=== PATIENT | male | born 1945 ===

== ENCOUNTER 2018-12-13 06:00 | Day surgery (SDC) | payer OTHER ==
[~2018-12-13 06:00] MED LIST: ARICEPT5 MG PO; COZAAR25 MG PO; COZAAR50 MG PO; GABAPENTIN800 MG PO; HUMLOG; LANTU; MOBIC7.5 M1 PO; PRILOSEC OTC20 MG PO; ZOCOR20 MG PO
[2018-12-13] MEDS ORDERED: ZOFRAN ODT4 MG PO (17:50)
[2018-12-13] MEDS ORDERED: NEURONTIN800 MG PO (17:50)
[2018-12-13] MEDS ORDERED: MIRALAX17 GM PO (17:50)
[2018-12-13] MEDS ORDERED: PERCOCET 5-3251 EACH PO (17:50)
== END 2018-12-13 21:15 | disposition home or self-care (01) ==
LOC: CIR.AMB 06:00
DX: K40.20 Bilateral inguinal hernia, without obstruction or gangrene, not specified as recurrent (principal); K42.9 Umbilical hernia without obstruction or gangrene